=== PATIENT | male | born 1930 | race Two or more races ===

== ENCOUNTER 2017-06-09 20:05 | Inpatient (IN) | payer MEDICARE ==
[2017-06-09 20:21] VITALS: BP 138/86
[2017-06-10] MEDS ORDERED: Magnesium Hydroxide (MOM) 30 mL UDC PO PRN (06:40)
[2017-06-10] MEDS: Aspirin 81mg Chewable Tab PO SCH (08:15)
[2017-06-10] MEDS: Levothyroxine 0.025 Mg Tab PO SCH (08:15)
[2017-06-10] MEDS ORDERED: Non-Formulary Item 1 EA (Docusate Calcium [Docusate Calcium] 240 MG) PO SCH (09:00)
--- NOTE | 2017-06-10 09:32 | Diagnostic Imaging Report ---
Portable chest x-ray HISTORY: Shortness of breath The heart size is difficult to assess with portable technique in a poor inspiration. Atherosclerotic calcification seen in the aorta. No acute focal pulmonary processes. IMPRESSION: 1. No acute focal pulmonary processes 2. Atherosclerotic vascular changes
[2017-06-10 11:13] LABS: % EOSINOPHILS 0.8 % (0.0-5.0); % LYMPHOCYTES 10.9 % (20.0-50.0); % MONOCYTES 11.9 % (2.0-10.0); % NEUTROPHILS 76.4 % (40.0-80.0); HEMATOCRIT 47.7 % (39.0-49.0); HEMOGLOBIN 15.6 gm/dL (12.6-17.4); MEAN CORPUSCULAR HEMOGLOBIN 28.8 pg (27.0-31.0); MEAN CORPUSCULAR HGB CONC 32.7 pg (28.0-36.0); MEAN PLATELET VOLUME 8.1 fl; NEUTROPHILE ABSOLUTE 9.3 Th/cmm (1.8-8.0); PLATELET COUNT 212 Th/cmm (150-400); RED BLOOD COUNT 5.43 Mil/cmm (3.80-5.80); RED CELL DISTRIBUTION WIDTH 13.9 % (11.5-20.0)
[2017-06-10 11:30] LABS: ALB/GLOB RATIO 1.5 (1.0-1.8); ALKALINE PHOSPHATASE 98 U/L (34-104); ANION GAP 10.8 (7.0-16.0); BILIRUBIN,TOTAL 0.8 mg/dL (0.3-1.0); BUN - UREA NITROGEN 34 mg/dL (7-25); BUN/CREATININE RATIO 21.3; CALCIUM SERUM 9.7 mg/dL (8.6-10.3); CHLORIDE 102 mEq/L (98-107); CREATININE - SERUM 1.6 mg/dL (0.7-1.3); GLUCOSE 91 mg/dL (70-105); POTASSIUM SERUM 3.8 mEq/L (3.5-5.1); SGOT 43 U/L (13-39); SGPT/ALT 17 U/L (7-52); SODIUM SERUM 135 mEq/L (136-145)
--- NOTE | 2017-06-10 11:42 | History & Physical ---
ADMIT DATE: 06/09/2017 PATIENT IDENTIFICATION: An 86-year-old male. REQUESTING PHYSICIAN: Dr. Watkins. PRESENTING COMPLAINT: "I want to walk and go home." HISTORY OF PRESENT ILLNESS: An 86-year-old [place]ian male who has a significant psychiatric history along with medical history, lives at home, noted to have aggressive behavior and abuse due to the staff. The patient was sent to Emergency Room where the patient was seen by Emergency Room MD and subsequently admitted. PAST MEDICAL HISTORY: Remarkable for: 1. Coronary artery disease. 2. Hypertension. 3. Vascular dementia. 4. Hypothyroidism. 5. Gout. 6. History of CVA. 7. Diffuse DJD. MEDICATIONS AT HOME: The patient is currently taking, which include Tylenol, allopurinol, aspirin, vitamin D, Colace, ophthalmological eyedrops, levothyroxine, lisinopril, magnesium oxide, Zyprexa, Seroquel, and simvastatin. ALLERGIES: The patient is not allergic to any medication. SOCIAL HISTORY: The patient is a retired . The patient's right and patient the primary which is speak Swedish. Primary language is Swedish as well. The patient is an x-smoker. No alcohol or drug use. FAMILY MEDICAL HISTORY: Unavailable. REVIEW OF SYSTEMS: Unable to obtain meaningful history from the patient due to his currently reviewed. PHYSICAL EXAMINATION: GENERAL: The patient is alert, awake, but not smoke. Following simple commands, but does not provide a meaningful history. VITAL SIGNS: Temperature 98.7, pulse is 74, respiratory rate 18, blood pressure 130/70. SKIN: Warm to touch. Multiple superficial bruising noted on the upper extremity. HEENT: Normocephalic, atraumatic. Extraocular muscles are intact. Tongue was pink and coated. Poor dentition noted. NECK: Supple, no JVD, no hepatojugular reflex. No lymphadenopathy, thyromegaly or carotid bruit. HEART: Both heart sounds are regular. Grade 2/6 systolic, grade 2/6 systolic murmur noted. CHEST AND LUNGS: Equal in expansion, no expiratory wheezing. ABDOMEN: Soft. No guarding, no rigidity. Bowel sounds are present. No palpable mass. EXTREMITIES: No edema, no cyanosis. Diffuse osteoarthritic changes noted. NEUROLOGIC: She is alert, awake, but not following any complex commands. Moving upper and lower extremity, unable to assess complete neurologic examination due to patient has very high risk for fall. AVAILABLE DIAGNOSTIC DATA: Urinalysis is normal. Other chemistry panels and CBC is not available for my review at this time. CLINICAL IMPRESSION: 1. Essential hypertension. 2. Hypothyroidism. 3. Hyperlipidemia. 4. Glaucoma. 5. High risk for fall. 6. Dementia, most likely multi-infarct. 7. Coronary artery disease. 8. Degenerative joint disease. 9. Psychotic disorder exacerbation. PLAN: The patient is currently admitted at this time to psychiatric unit: Psychiatric evaluation and management deferred to psychiatrist for now. The patient is to continue his home medications as the patient was receiving which include allopurinol, aspirin, vitamin D3, Colace, eyedrops, levothyroxine, lisinopril, magnesium sulfate, Zyprexa, Seroquel, and simvastatin for now. Fall precautions will be given as well. General nursing care can be was provided. We will continue to follow this patient during the stay at the hospital. I sincerely thank you, Dr. Watkins for giving me the opportunity to participate in patient of yours. JOB# [id number]
[2017-06-10 11:56] LABS: WHITE BLOOD COUNT 12.2 Th/cmm (4.8-10.8)
--- NOTE | 2017-06-11 02:13 | Psychosocial Evaluation ---
DATE OF SERVICE: 06/10/2017 JUSTIFICATION FOR HOSPITALIZATION: The patient came in on a legal hold for grave disability, concerns for his ability to care for basic food, clothing, and alf, confused, disoriented. CHIEF COMPLAINT: "I do not know why I am here." HISTORY OF PRESENT ILLNESS: An 86-year-old male, unclear psych history, brought in on a hold and transferred from [facility] in [place]. He was apparently aggressive towards staff, placed on a hold for grave disability. On [id number], the patient altered, does not know where he is, what is going on, or why he is here, deeply confused and disoriented, rambling nonsensically. Staff noting he has been actively hallucinating, talks to himself, responding heavily to internal stimuli. The patient believes the year is 1950 and the month is August. PAST PSYCHIATRIC HISTORY: Unknown. I will reach out the daughter. FAMILY HISTORY: Unknown. SOCIAL HISTORY: The patient states he was born in [place], 4 times. He states he has 4 children and "50 grandchildren." It is unclear if he uses any drugs or alcohol or tobacco. DIAGNOSTIC IMAGING: Chest x-ray was done. Notes were reviewed. MEDICAL HISTORY: Noted, please see full H and P. MEDICATIONS: He is on Seroquel. MENTAL STATUS EXAMINATION: Stated age, not wearing a shirt, in a Lilian chair, rambling nonsensically, mood "okay." Affect flat. Thought processes were confused, disoriented. No SI, no HI. He does appear to be actively responding to internal stimuli, poor insight and judgment, poor impulse control. PROVISIONAL DIAGNOSES: dementia, also psychosis, unspecified. MEDICAL: Please see full H and P. ESTIMATED LENGTH OF STAY: 5-7 days. ASSESSMENT: The patient requiring inpatient hospitalization, aggressive, agitated, confused, disoriented, concerns for his ability to care for basic needs. PLAN: We will reach out the daughter. TREATMENT PLAN: Includes group as well as milieu therapy. CONDITIONS FOR DISCHARGE: Improved mood, improved affect, control of any psychotic symptoms, control of any violent behavior. JOB# [id number]
[2017-06-11] MEDS: Levothyroxine 0.025 Mg Tab PO SCH (06:54)
[2017-06-11] MEDS: Aspirin 81mg Chewable Tab PO SCH (09:27)
--- NOTE | 2017-06-11 23:45 | Progress Notes ---
DATE: 06/11/2017 SUBJECTIVE: The patient seen, chart reviewed, discussed with staff. The patient remains confused, disoriented, has been aggressive at facility. I spoke with daughter at length yesterday. The patient has been on Prozac, ____ and Seroquel. There had been apparently some medication adjustments and the patient did not tolerate this well, have him back on his medications now. The patient seems to be calmer, more cooperative, but remains very confused. Does not know where he is, does not know why he is here. Does not know the year, the month, still on the Lilian chair, restless. ASSESSMENT: The patient remains symptomatic, concerns for aggressive behaviors. He seems to be calming down. Currently, gravely disabled, no confirmed placement. I did speak with daughter yesterday at length. JOB# [id number]
[2017-06-12] MEDS: Levothyroxine 0.025 Mg Tab PO SCH (06:47)
[2017-06-12] MEDS: Aspirin 81mg Chewable Tab PO SCH (08:36)
--- NOTE | 2017-06-12 19:53 | Progress Notes ---
DATE: 06/12/2017 SUBJECTIVE: The patient seen, chart reviewed, discussed with staff. The patient remains confused, restless, gets agitated, trying to get out of the chair, reaching for something that is not there, at times refusing medications, impulsive, unpredictable. I did speak with daughter a few days ago. Medications were reviewed. No side effects. The patient is requiring a lot of redirection lot staff support. ASSESSMENT: The patient remains symptomatic, still agitated, restless, confused, disoriented. PLAN: We will continue to monitor, given continued safety concerns and concerns about the patient's ability to function at a lower level of care. We will continue inpatient hospitalization and promote medication management and also promote med compliance. JOB# [id number]
[2017-06-13] MEDS: Levothyroxine 0.025 Mg Tab PO SCH (06:52)
[2017-06-13] MEDS: Aspirin 81mg Chewable Tab PO SCH (08:42)
--- NOTE | 2017-06-13 22:07 | Progress Notes ---
DATE: 06/13/2017 SUBJECTIVE: The patient is seen, chart reviewed, and discussed with staff. The patient is currently here on a 51:50 hold ____ [facility] [place], noted to be aggressive, requiring emergency medications, confused, disoriented, rambling nonsensically, talking to himself, AO to name only, not answering any further questions, some concerns about medication compliance as well, still on a Lilian chair, trying to get up. Staff noting that yesterday he was taking ____ trying to walk around. He does walk with prompting. Daughter came yesterday and was apparently demanding to take him home, but once she evaluated him, she could not take him home. I did call her yesterday in the afternoon around 3:00 and left a voice message I did not get a call back from her as of yet. ASSESSMENT: The patient remains symptomatic, confused, disoriented, is still aggressive. PLAN: Continue to monitor, encourage med compliance. JOB# [id number]
[2017-06-14] MEDS: Levothyroxine 0.025 Mg Tab PO SCH (06:32)
[2017-06-14] MEDS: Aspirin 81mg Chewable Tab PO SCH (08:30)
--- NOTE | 2017-06-14 11:34 | Progress Notes ---
DATE: 06/14/2017 SUBJECTIVE: The patient seen, chart reviewed, discussed with staff. The patient seems to be calming down, more redirectable, less agitated, taking his medications, still mumbling, confused, disoriented. I called his daughter on Wednesday, 2 days prior. I still have not heard a call back from her. The patient is sleeping fairly well, eating with prompting, still needing some redirection. Still somewhat resistant to ADLs, but seems to be improving and is less violent and combative. ASSESSMENT: The patient remains confused, still disoriented, gravely disabled, cannot attend to his basic needs. PLAN: We will continue to monitor. We will continue to monitor and adjust medications. I am currently pending a call back from daughter. JOB# [id number]
[2017-06-15] MEDS: Levothyroxine 0.025 Mg Tab PO SCH (06:33)
--- NOTE | 2017-06-15 09:05 | General Progress Note ---
Subjective - Review of Systems Subjective: Patient seen and examined. Unable to get meaningful history from patient's. For all 24 hours events and nurse's notes are reviewed. Objective - Results Result Diagrams: 06/10/17 11:00 06/10/17 11:00 Recent Labs: Laboratory Last Values WBC 12.2 Th/cmm (4.8-10.8) H 06/10/17 11:00 RBC 5.43 Mil/cmm (3.80-5.80) 06/10/17 11:00 Hgb 15.6 gm/dL (12.6-17.4) 06/10/17 11:00 Hct 47.7 % (39.0-49.0) 06/10/17 11:00 MCV 88.0 fl (80-99) 06/10/17 11:00 MCH 28.8 pg (27.0-31.0) 06/10/17 11:00 MCHC Differential 32.7 pg (28.0-36.0) 06/10/17 11:00 RDW 13.9 % (11.5-20.0) 06/10/17 11:00 Plt Count 212 Th/cmm (150-400) 06/10/17 11:00 MPV 8.1 fl 06/10/17 11:00 Neutrophils % 76.4 % (40.0-80.0) 06/10/17 11:00 Lymphocytes % 10.9 % (20.0-50.0) L 06/10/17 11:00 Monocytes % 11.9 % (2.0-10.0) H 06/10/17 11:00 Eosinophils % 0.8 % (0.0-5.0) 06/10/17 11:00 Basophils % 0.0 % (0.0-2.0) 06/10/17 11:00 Sodium 135 mEq/L (136-145) L 06/10/17 11:00 Potassium 3.8 mEq/L (3.5-5.1) 06/10/17 11:00 Chloride 102 mEq/L (98-107) 06/10/17 11:00 Carbon Dioxide 26.0 mEq/L (21.0-31.0) 06/10/17 11:00 Anion Gap 10.8 (7.0-16.0) 06/10/17 11:00 BUN 34 mg/dL (7-25) H 06/10/17 11:00 Creatinine 1.6 mg/dL (0.7-1.3) H 06/10/17 11:00 Est GFR ( Amer) TNP 06/10/17 11:00 Est GFR (Non-Af Amer) TNP 06/10/17 11:00 BUN/Creatinine Ratio 21.3 06/10/17 11:00 Glucose 91 mg/dL (70-105) 06/10/17 11:00 POC Glucose 122 MG/DL (70 - 105) H 06/14/17 11:43 Calcium 9.7 mg/dL (8.6-10.3) 06/10/17 11:00 Total Bilirubin 0.8 mg/dL (0.3-1.0) 06/10/17 11:00 AST 43 U/L (13-39) H 06/10/17 11:00 ALT 17 U/L (7-52) 06/10/17 11:00 Alkaline Phosphatase 98 U/L (34-104) 06/10/17 11:00 Total Protein 7.3 gm/dL (6.0-8.3) 06/10/17 11:00 Albumin 4.4 gm/dL (4.2-5.5) 06/10/17 11:00 Globulin 2.9 gm/dL 06/10/17 11:00 Albumin/Globulin Ratio 1.5 (1.0-1.8) 06/10/17 11:00 TSH 2.27 uIU/ml (0.34-5.60) 06/10/17 11:00 - Physical Exam Vitals and I&O: Vital Signs Temp 97.6 F 06/15/17 06:23 Pulse 61 06/15/17 06:23 Resp 19 06/15/17 06:23 BP 136/72 06/15/17 06:23 Pulse Ox 93 06/15/17 06:23 Intake & Output 06/14/17 06/15/17 06/15/17 18:59 06:59 18:59 Intake Total 600 60 Balance 600 60 Weight (lbs) 69.536 kg Intake: Oral 600 60 Other: # Voids 2 1 # Bowel Movements 0 0 Active Medications: Current Medications Acetaminophen (Tylenol) 650 mg PO Q6H PRN PRN Reason: Mild Pain / Temp above 100 Stop: 08/08/17 22:37 Allopurinol (Zyloprim) 100 mg PO DAILY WARREN Stop: 08/09/17 08:59 Last Admin: 06/14/17 08:30 Dose: 100 mg Aspirin (Aspirin Chewable) 81 mg PO DAILY WARREN Stop: 08/09/17 08:59 Last Admin: 06/14/17 08:30 Dose: 81 mg Docusate Sodium (Colace) 250 mg PO DAILY WARREN Stop: 08/09/17 08:59 Last Admin: 06/14/17 08:30 Dose: 250 mg Fluoxetine HCl (Prozac) 10 mg PO DAILY WARREN PRN Reason: Protocol Stop: 08/10/17 08:59 Last Admin: 06/14/17 08:30 Dose: 10 mg Latanoprost (Xalatan 0.005% Ophth Soln) 1 drop EACH EYE HS WARREN Stop: 08/09/17 20:59 Last Admin: 06/14/17 21:11 Dose: Not Given Levothyroxine Sodium (Synthroid) 0.025 mg PO QDAC WARREN Stop: 08/09/17 07:29 Last Admin: 06/15/17 06:33 Dose: Not Given Lisinopril (Zestril) 10 mg PO DAILY WARREN Stop: 08/09/17 08:59 Last Admin: 06/14/17 08:35 Dose: Not Given Lorazepam (Ativan) 1 mg PO Q6H PRN; Protocol PRN Reason: Anxiety/Agitation Stop: 08/08/17 20:22 Last Admin: 06/13/17 13:38 Dose: 1 mg Magnesium Hydroxide (Milk Of Magnesia) 30 ml PO HS PRN PRN Reason: constipation Stop: 08/09/17 06:39 Last Admin: 06/14/17 16:45 Dose: 30 ml Mirtazapine (Remeron) 7.5 mg PO HS WARREN PRN Reason: Protocol Stop: 08/09/17 20:59 Last Admin: 06/14/17 21:44 Dose: 7.5 mg Quetiapine Fumarate (Seroquel) 25 mg PO Q8H PRN; Protocol PRN Reason: agitation Stop: 08/09/17 06:39 Last Admin: 06/12/17 09:58 Dose: 25 mg Quetiapine Fumarate (Seroquel) 150 mg PO HS WARREN PRN Reason: Protocol Stop: 08/09/17 21:14 Last Admin: 06/14/17 21:44 Dose: 150 mg Simvastatin (Zocor) 20 mg PO HS WARREN PRN Reason: Protocol Stop: 08/09/17 20:59 Last Admin: 06/14/17 21:44 Dose: 20 mg Zolpidem Tartrate (Ambien) 5 mg PO HS PRN PRN Reason: Insomnia Stop: 08/08/17 20:22 General: Alert, No acute distress HEENT: Atraumatic, PERRLA, EOMI Neck: Supple, JVD Cardiovascular: Regular rate, Normal S1, Normal S2 Lungs: Clear to auscultation Abdomen: Bowel sounds, Soft Extremities: Other (no edema .) Skin: Other (no rashes) Psych/Mental Status: Other (labile mental status. With significant dementia) Assessment/Plan - Assessment Assessment: Coronary artery disease. Hypertension. Gout. DJD. Hyperlipidemia. Hypothyroidism. Vascular dementia. Fall risk. - Plan Plan: After reviewing the records and assessment patient will be continued on current medication as patient is receiving continued to follow psychiatrist's recommendations for general nursing care for precautions along with the current medication as prescribed by myself and construction consultant. Nutritional Asmnt/Malnutr-PDOC - Dietary Evaluation Malnutrition Findings (Please click <Entered> for more info): Nutritional Asmnt/Malnutrition Start: 06/14/17 16: 57 Text: Status: Complete Freq: Document 06/14/17 17:00 [facility] (Rec: 06/14/17 17:21 FINN [email or web address]) Nutritional Asmnt/Malnutrition Patient General Information Nutritional Screening Moderate Risk Screening Diagnosis Essential HTN, hyperlipidemia, Pertinent Medical Hx/Surgical Hx CAD, HTN, vascular dementia, hypothyroidism, gout, hx CVA, diffuse DJD Subjective Information 86 year old male. Pt was soundly asleep during visit, did not wake up to call. Spoke to nursing staff, stated pt is confused and a poor historian, requires assistance with meals. Avg PO intake 58% of past 12 meals since adm, meeting 75% kcal and 88% prot needs. Observed most upper teeth intact. Limited physical assessment, mild temporal wasting, no severe wasting noted. Current Diet Order/ Nutrition Support Low sodium, soft, low fat Pertinent Medications Colace, Synthroid, MOM, Remeron, Seroqual Pertinent Labs 06/10: BUN 34H, creatinine 1.6H no renal dysfunction noted in H&P Nutritional Hx/Data Height 1.65 m Height (Calculated Centimeters) 165.1 Current Weight (lbs) 69.536 kg Weight (Calculated Kilograms) 69.5 Weight (Calculated Grams) 15294.7 [place] Body Weight 136 Weight Status Approriate GI Symptoms Skin Integrity/Comment: Bakari 16. Skin WNL. Current %PO Fair (50-74%) Estimated Nutritional Goals BEE in Kcals: Using Current wt Calories/Kcals/Kg CBW 153.3lb/69.7kg Kcals Calculated 1743-2091kcal (25-30kcal/kg) Protein: Using Current wt Protein Calculated 70g (1g/kg) Fluid: ml 1743-2091ml (1ml/kcal) Nutritional Problem 1. Problem Problem Inadequate oral food beverage intake related to Etiology possibly cognition aeb Signs/Symptoms: avg PO intake meeting 75% kcal and 88% prot needs Intervention/Recommendation Comments 1. Conitnue with current diet order. Avg PO intake is inadequate, meeting 75% kcal and 88% prot needs. 2. Recommend Boost BID. Expected Outcomes/Goals Expected Outcomes/Goals 1. PO intake to meet at least 75% of estimated nutritional needs.
[2017-06-15] MEDS: Aspirin 81mg Chewable Tab PO SCH (09:52)
--- NOTE | 2017-06-15 23:12 | Progress Notes ---
DATE: 06/15/2017 SUBJECTIVE: The patient seen, chart reviewed, and discussed with staff. The patient seems to be improving. Alert and oriented to name. He knows where he is. He does not know why he is here. He is not quite sure about the month of the year. He tells me that it is August. He is a lot calmer, more cooperative, friendly, more engaged. Taking his medications. Eating with some prompting. Needing help with ADLs. Less violent. I did speak with daughter today at length. ASSESSMENT: Improvement noted, seems to be improving, less agitated, less combative, was violent, more oriented and engaged, likely at baseline. PLAN: Initiate Aricept. We will coordinate care with social work. We will monitor for another 24 hours approximately and discharge tomorrow. JOB# [id number]
[2017-06-16] MEDS: Levothyroxine 0.025 Mg Tab PO SCH (06:43)
[2017-06-16] MEDS: Aspirin 81mg Chewable Tab PO SCH (09:43)
--- NOTE | 2017-06-16 17:53 | Discharge Summary ---
DATE OF DISCHARGE: 06/16/2017 JUSTIFICATION FOR HOSPITALIZATION: On 5150 hold. The patient combative, aggressive, agitated, more confused than usual. CHIEF COMPLAINT: Aggression, agitation. HISTORY OF PRESENT ILLNESS: An 86-year-old male with history of known dementia, had been living at [place] facility, recently more confused, combative, agitated, placed on a 5150 hold, and transferred to the Geropsych Unit. On initial presentation, the patient was confused, disoriented, mumbling to himself, nonsensical, trying to get up, poor redirection, noted to have poor sleep, refusing medications at times. PAST PSYCHIATRIC HISTORY: Dementia. FAMILY HISTORY: Noncontributory. SOCIAL HISTORY: The patient is living at [facility] in . Daughter is very involved with his care. I did speak with her on the phone a few times. MENTAL STATUS EXAMINATION: Please see full psych eval for details. PROVISIONAL DIAGNOSES: Dementia with behavioral disturbances; psychosis, unspecified; Mood, unspecified; anxiety, unspecified; poor medication and treatment compliance. MEDICAL: Please see full H and P. LABORATORY DATA: Reviewed. HOSPITAL COURSE: After initial assessment, the patient was admitted to the Geropsych Unit, placed on a voluntarily status. The patient was noted to be initially combative, agitated, requiring a lot of redirection and prompting by staff, trying to get up, refusing medications. However, as the hospital course progressed, it seems he had been doing, better mood improved, more interactive, remains confused, but no longer violent or agitated. By 06/16/2017, placement was confirmed and he no longer medical necessity for hospitalization or hold. CONDITION UPON DISCHARGE: The patient with better attention to ADLs and allowing ADLs by staff. Speech continues to mumble. Mood is "okay." Affect flat. Thought processes were confused, disoriented. No SI, no HI, no psychotic symptoms, poor insight, poor judgment, better impulse control. Sleeping better, more redirectable, no violent behaviors. Tolerant of medications. I did change his medications back to previous dosages per daughter before the patient decompensating. DISCHARGE DIAGNOSES: Dementia with behaviors; psychosis, unspecified; mood, unspecified; anxiety, unspecified; and poor medication and treatment compliance. MEDICAL: Please see full H and P. PROGNOSIS: If the patient follows up with outpatient mental health services and continues to treatment, prognosis will improve, otherwise guarded. [facility]# [id number]
== END 2017-06-16 10:47 | DRG 884 ==
LOC: GERO 20:05
PROVIDERS: ADMIT Psychiatry & Neurology Psychiatry; ATTEND Psychiatry & Neurology Psychiatry
DX: F01.51 Vascular dementia, unspecified severity, with behavioral disturbance (principal); I10 Essential (primary) hypertension; F29 Unspecified psychosis not due to a substance or known physiological condition; E03.9 Hypothyroidism, unspecified; E78.5 Hyperlipidemia, unspecified; H40.9 Unspecified glaucoma; M19.90 Unspecified osteoarthritis, unspecified site; I25.10 Atherosclerotic heart disease of native coronary artery without angina pectoris; M10.9 Gout, unspecified; F39 Unspecified mood [affective] disorder; F41.9 Anxiety disorder, unspecified; Z91.81 History of falling; Z88.8 Allergy status to other drugs, medicaments and biological substances; Z86.73 Personal history of transient ischemic attack (TIA), and cerebral infarction without residual deficits; Z79.82 Long term (current) use of aspirin
CPT/HCPCS: 36415-UA; 71010-TC; 80053-TC; 82948-90; 84443-TC; 85025-TC; 97530; X3904; Z7610